=== PATIENT | female | born 1970 | race Caucasian/White ===

== ENCOUNTER 2018-03-05 17:18 | Emergency (ER) | payer MEDICAID, OTHER ==
[~2018-03-05] VITALS: Ht 172.7 cm; Wt 104.5 kg
[~2018-03-05 17:18] MED LIST: ALBU8.5H8 IH; BUDE10.2 IH; DULO30CA2 PO; HYDR-4031 PO; METF500T6 PO; PRED5 PO; PROMVCC5L PO; QUET300T2 PO; TIOT185 IH
[2018-03-05] MEDS ORDERED: QUET200T PO (17:51)
[2018-03-05] MEDS ORDERED: ARIP10TA8 PO (17:51)
[2018-03-05] MEDS ORDERED: IPRAHFA IH (17:51)
[2018-03-05] MEDS ORDERED: AUD NEB (17:51)
[2018-03-05] MEDS ORDERED: TRAZ-147 PO (17:51)
[2018-03-05] MEDS ORDERED: 0.9% SODIUM CHLORIDE 5 ML NEB SOLUTION NEB ONE ×4 (19:24→22:50)
[2018-03-05] MEDS ORDERED: IPRATROPIUM BROMIDE 0.5 MG/2.5 ML NEB SOLUTION NEB ONE ×3 (19:30→22:45)
[2018-03-05] MEDS ORDERED: ALBUTEROL SULFATE 5 MG/ML 20 ML NEB SOLN [BULK] NEB ONE ×3 (19:30→22:45)
[2018-03-05] MEDS ORDERED: MethylPREDNISolone SOD SUCC 125 MG/2 ML VIAL IVP ONE (20:30)
[2018-03-05 21:21] LABS: BASOPHILS % (AUTO) 0.6 % (0.0-2.0); EOSINOPHILS % (AUTO) 3.6 % (1.0-6.0); HEMATOCRIT 43.4 % (36-46); HEMOGLOBIN 14.6 g/dL (12.0-16.0); LYMPHOCYTES # (AUTO) 1.7 K/uL (1.0-4.8); LYMPHOCYTES % (AUTO) 47.5 % (22.0-44.0); MEAN CORPUSCULAR HEMOGLOBIN 30.7 pg (26.0-34.0); MEAN CORPUSCULAR HGB CONC 33.7 G/dL (31.0-37.0); MEAN CORPUSCULAR VOLUME 91 fL (80-100); MONOCYTES # (AUTO) 0.2 K/uL (0.1-1.0); MONOCYTES % (AUTO) 5.9 % (2.0-9.0); NEUTROPHILS # (AUTO) 1.5 K/uL (1.8-7.7); NEUTROPHILS % (AUTO) 42.4 % (40.0-70.0); PLATELET COUNT (AUTO) 105 K/uL (150-450); RED BLOOD CELL COUNT(AUTO) 4.77 MIL/uL (4.00-5.20); RED CELL DISTRIBUTION WIDTH 14.9 % (11.5-14.5)
[2018-03-05 21:31] LABS: ANION GAP 8 mmol/L (8-16); CALCIUM, TOTAL 8.6 mg/dL (8.8-10.5); CARBON DIOXIDE 30 mmol/L (22-29); CHLORIDE 102 mmol/L (98-107); CREATININE 0.78 mg/dL (0.60-1.30); GLOMERULAR FILTR. RATE CALC > 60 mL/min (>60); GLUCOSE,RANDOM 176 mg/dL (70-110); POTASSIUM 3.5 mmol/L (3.5-5.1); SODIUM SERUM 140 mmol/L (136-145); UREA NITROGEN, BLOOD 6 mg/dL (7-18)
[2018-03-05 21:37] LABS: ALANINE AMINOTRANSFERASE 90 U/L (12-78); ALBUMIN 3.2 g/dL (3.4-5.0); ALKALINE PHOSPHATASE 146 U/L (46-116); ASPARTATE AMINOTRANSFERASE 71 U/L (15-37); BILIRUBIN,TOTAL 0.3 mg/dL (0.1-1.0); TOTAL PROTEIN, SERUM 6.9 g/dL (6.4-8.2)
[2018-03-05 21:52] LABS: B-TYPE NATRIURETIC PEPTIDE 9 pg/mL (0-100)
[2018-03-06] MEDS ORDERED: AZITHROMYCIN 250 MG TABLET PO ONE (01:00)
[2018-03-06] MEDS ORDERED: ALBUTEROL SULFATE HFA 90 MCG/PUFF 8 GM INHALER IH ONE (01:00)
[2018-03-06 01:33] VITALS: BP 122/70
== END 2018-03-06 01:45 | disposition home or self-care (01) ==
LOC: EMS 17:19
DX: J44.1 Chronic obstructive pulmonary disease with (acute) exacerbation (principal); J45.901 Unspecified asthma with (acute) exacerbation; F17.210 Nicotine dependence, cigarettes, uncomplicated; Z88.6 Allergy status to analgesic agent; Z88.1 Allergy status to other antibiotic agents; Z88.0 Allergy status to penicillin; Z91.013 Allergy to seafood
CPT/HCPCS: 36415; 71045; 80053; 83605; 83880; 84484; 85025; 87040; 93005; 94644; 94645; 96374; 99285; J2930; J7611; J3535